=== PATIENT | female | born 1945 | race Caucasian/White ===

== ENCOUNTER 2019-06-05 19:27 | Emergency (ER) | payer SELFPAY ==
--- NOTE | 2019-06-05 19:27 | NUR ---
Patient brought in [facility] transport found sitting on sidewalk. Patient reports drinking 2 beers tonight. Patient is AOx4 ambulatory. Patient refuses treatment at this time. Patient left without being seen from [facility]. Patient presented to facility under the influence of alcohol. Patient is currently ambulatory with steady gait, able to walk unassisted. Positive gag reflex. Alert and oriented. Is not driving self for discharge out of facility. Patient reports her boyfriend is going to pick her up. Patient was seated in the waiting room.
--- NOTE | 2019-06-05 19:27 | NUR ---
Left without being seen and triaged
== END 2019-06-05 19:40 | disposition left against medical advice (07) ==
LOC: SED 19:27
DX: Z00.8 Encounter for other general examination (principal); Z53.21 Procedure and treatment not carried out due to patient leaving prior to being seen by health care provider